=== PATIENT | male | born 1940 | race Caucasian/White ===

== ENCOUNTER 2017-12-29 05:31 | Outpatient (CLI) | payer OTHER ==
[~2017-12-29] VITALS: Ht 182.9 cm; Wt 77.1 kg
[2017-12-29] MEDS ORDERED: LOSA100T8 PO (09:23)
[2017-12-29] MEDS ORDERED: CARB1TAB45 PO (09:23)
[2017-12-29] MEDS ORDERED: CLON1TAB27 PO (09:23)
[2017-12-29] MEDS ORDERED: VNL75T PO (09:23)
== END 2017-12-29 09:45 | disposition home or self-care (01) ==
LOC: PREOP 05:31
PROVIDERS: ATTEND Radiology Radiation Oncology
DX: Z01.818 Encounter for other preprocedural examination (principal)

== ENCOUNTER 2018-01-06 09:39 | Day surgery (SDC) | payer MEDICARE, OTHER ==
[~2018-01-06] VITALS: Ht 182.9 cm; Wt 77.1 kg
[~2018-01-06 09:39] MED LIST: CARB1TAB45 PO; CLON1TAB27 PO; LOSA100T8 PO; VNL75T PO
[2018-01-06 09:47] VITALS: BP 138/94
[2018-01-06] MEDS ORDERED: TRAM50TA2 PO ×2 (10:35→10:48)
[2018-01-06] MEDS ORDERED: CARB1TAB44 PO (10:35)
[2018-01-06] MEDS ORDERED: SILD100T PO (10:35)
[2018-01-06] MEDS ORDERED: CARI250T PO (10:35)
[2018-01-06] MEDS ORDERED: HYDR12.525 PO (10:35)
--- NOTE | 2018-01-06 10:38 | Progress Note-Pre Operative ---
Pre-Operative Progress Note H&P Reviewed The H&P was reviewed, patient examined and no changes noted. Date Seen by Provider: Jan 06, 2018 Time Seen by Provider: 10:38 Date H&P Reviewed: Jan 06, 2018 Time H&P Reviewed: :38 Pre-Operative Diagnosis: Prostate cancer cT1c, PSA 5.3, [place] 7 (3+4) SAMY BURLESON MD Jan 06, 2018 10:38
--- NOTE | 2018-01-06 10:44 | Discharge Inst-Simple/Standard ---
Discharge Inst-Standard Discharge Medications New, Converted or Re-Newed RX: RX Given to Pt/Family Patient Instructions/Follow Up Plan of Care/Instructions/FU: 1)Follow up appointment with Dr. Hays February 03 at 10:30 a.m. (Please give address for his office). 2)Follow up appointment at [facility] for one month post implant scan February 05 at 8:45 a.m. Activity as Tolerated: Yes Discharge Diet: No Restrictions Other Inst to Patient Please instruct patient and/or family how to remove cantu catheter. Either Monday 01/08 or Thursday 01/[address] Hays. SAMY BURLESON MD Jan 06, 2018 10:44
[2018-01-06] MEDS ORDERED: CIPR-226 PO (10:48)
[2018-01-06] MEDS ORDERED: LEVOFLOXACIN 500 MG/100 ML IV 100 ML IV ONE (11:00)
[2018-01-06] MEDS ORDERED: CATHETER FLUSH 10 ML SYR IV PRN (11:15)
[2018-01-06] MEDS: LACTATED RINGERS 1,000 ML IV PRN ×2 (11:50→13:35)
[2018-01-06] MEDS ORDERED: DEXAMETHASONE 10 MG/ML (DECADRON) 1 ML VIAL ONE (11:56)
[2018-01-06] MEDS ORDERED: ONDANSETRON 4 MG/2 ML (SDV) Z0FRAN ONE (11:56)
[2018-01-06] MEDS ORDERED: proPOfol 200 MG/20 ML (DIPRIVAN) VIAL IV ONE (11:56)
[2018-01-06] MEDS ORDERED: SEVOFLURANE (ULTANE) 15 ML INHAL SOLN ONE ×3 (11:56→13:21)
[2018-01-06] MEDS ORDERED: LACTATED RINGERS 1,000 ML IV ONE (11:56)
[2018-01-06] MEDS ORDERED: MIDAZOLAM 2 MG/2 ML (VERSED) VIAL ONE (11:57)
[2018-01-06] MEDS ORDERED: fentaNYL INJECTION 100 MCG/2 ML AMP ONE (11:57)
--- NOTE | 2018-01-06 13:56 | Diagnostic Imaging Report ---
INDICATION: Undergoing brachytherapy of the prostate gland. TECHNIQUE: Single intraprocedural image of the pelvis. CORRELATION STUDY: None. FINDINGS: A single intraprocedure image demonstrates the bladder to contain high density contrast with the presence of a Fenton catheter. There are multiple radiation seed implants projecting along the inferior margins of the bladder and below the bladder base, likely at the level of the prostate bed. FLUOROSCOPY TIME: 6 seconds. IMPRESSION: Fluoroscopy was utilized for radiation seed implant at the level of the prostate bed. Dictated by: Dictated on workstation # [id number]
[2018-01-06 14:25] VITALS: BP 132/88
--- NOTE | 2018-01-06 14:36 | Progress Note-Post Operative ---
Post-Operative Progess Note Surgeon (s)/Chronometer Assembler (s) Surgeon SAMY BURLESON MD Chronometer Assembler: Ashu SINCLAIR MD Pre-Operative Diagnosis Prostate cancer cT1c, PSA 5.3, [place] 7 (3+4) Post-Operative Diagnosis Same as pre-op Procedure & Operative Findings Date of Procedure 01/06/18 Procedure Performed/Findings 67% Cesium 131 permanent prostate seed implant; injection of biodegradable hydrogel prostate-rectal spacer utilizing the SpaceOAR system; cystogram Prostate volume 41.5 cc Anesthesia Type General Estimated Blood Loss Estimated blood loss (mL): Minimal Specimens/Packing Specimens Removed None Packing: None SAMY BURLESON MD Jan 06, 2018 14:35
[2018-01-06 14:55] VITALS: BP 126/90
[2018-01-06 15:25] VITALS: BP 109/83
--- NOTE | 2018-01-06 15:30 | Anesthesia-General Post-Op ---
General Patient Condition Mental Status/LOC: Same as Preop Cardiovascular: Satisfactory Nausea/Vomiting: Absent Respiratory: Satisfactory Pain: Controlled Complications: Absent Post Op Complications Complications None Follow Up Care/Instructions Patient Instructions None needed. Anesthesia/Patient Condition Patient Condition Patient was seen after the procedure and he was doing well, no complaints, stable vital signs, no apparent adverse anesthesia problems. ARIK ALBA DO Jan 06, 2018 15:30
== END 2018-01-06 15:40 | disposition home or self-care (01) ==
LOC: SDC 09:39
PROVIDERS: ATTEND Radiology Radiation Oncology
DX: C61 Malignant neoplasm of prostate (principal); I10 Essential (primary) hypertension; G20 Parkinson's disease; Z79.899 Other long term (current) drug therapy
CPT/HCPCS: 76965; 77290; 77318; 77332; 77370; 77470; 77778; 87081